=== PATIENT | female | born 2000 | race Caucasian/White ===

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

== ENCOUNTER → 2018-05-09 | Outpatient (REF) | payer OTHER ==
[2018-05-09 22:08] LABS: APPEARANCE, URINE CLEAR (CLEAR); BACTERIA, URINE AUTO NEGATIVE (NEGATIVE); BILIRUBIN, URINE AUTO NEGATIVE (NEGATIVE); BLOOD, URINE BLOOD NEGATIVE (NEGATIVE); COLOR, URINE YELLOW (YELLOW); GLUCOSE, URINE (UA) AUTO NEGATIVE (NEGATIVE); KETONE, URINE AUTO NEGATIVE (NEGATIVE); LEUKOCYTE ESTERASE, URINE AUTO NEGATIVE (NEGATIVE); NITRITE, URINE AUTO NEGATIVE (NEGATIVE); PROTEIN, URINE AUTO NEGATIVE (NEGATIVE); RBC, URINE AUTO 0 /HPF (0-3); SPECIFIC GRAVITY URINE AUTO 1.015 (1.002-1.035); SQUAMOUS EPITHELIAL CELL UR AU 0 /HPF (0-6); UROBILINOGEN, URINE AUTO 0.2 mg/dL (0.0-2.0); WBC, URINE AUTO 0 /HPF (0-3)
== END ==
LOC: M LAB REF 09:22
PROVIDERS: ATTEND Physician Assistant
DX: N39.0 Urinary tract infection, site not specified (principal)

== ENCOUNTER → 2018-07-12 | Outpatient (CLI) | payer BC, OTHER ==
[2018-07-12 13:48] LABS: BASO % 0.3 % (0.0-1.0); EOS # 0.1 10^3/uL (0.0-0.50); EOS % 3.8 % (0.0-3.0); HEMATOCRIT 39.4 % (36.0-47.0); HEMOGLOBIN 12.9 g/dl (12.0-15.5); LYMPH # 1.6 10^3/uL (1.5-6.5); LYMPH % 49.4 % (24.0-44.0); MEAN CORPUSCULAR HEMOGLOBIN 27.8 pg (27.0-33.0); MEAN CORPUSCULAR HGB CONC 32.7 g/dl (32.0-36.5); MEAN CORPUSCULAR VOLUME 84.9 fl (80.0-96.0); MONO # 0.4 10^3/uL (0.0-0.8); MONO % 13.8 % (0.0-5.0); NEUTROPHILS % 32.7 % (36.0-66.0); PLATELET COUNT, AUTOMATED 162 10^3/uL (150-450); RED BLOOD COUNT 4.64 10^6/uL (4.00-5.40); WHITE BLOOD COUNT 3.2 10^3/uL (4.0-10.0)
[2018-07-12 13:55] LABS: ALBUMIN 3.6 GM/DL (3.2-5.2); ALT/SGPT 34 U/L (12-78); BILIRUBIN,TOTAL 0.2 MG/DL (0.2-1.0); BLOOD UREA NITROGEN 5 MG/DL (7-18); CALCIUM LEVEL 8.6 MG/DL (8.5-10.1); CARBON DIOXIDE LEVEL 26 MEQ/L (21-32); CHLORIDE LEVEL 107 MEQ/L (98-107); CREATININE FOR GFR 0.66 MG/DL (0.55-1.30); FERRITIN 43 NG/ML (8-252); GLUCOSE, FASTING 78 MG/DL (70-100); IRON (FE) 41 UG/DL (50-170); MAGNESIUM LEVEL 2.1 MG/DL (1.4-2.0); PERCENT SATURATION 14.7 % (13.2-45.0); PHOSPHORUS LEVEL 3.7 MG/DL (2.5-4.9); POTASSIUM SERUM 3.8 MEQ/L (3.5-5.1); SODIUM LEVEL 142 MEQ/L (136-145); TOTAL IRON BINDING CAPACITY 279 UG/DL (250-450); TOTAL PROTEIN 6.9 GM/DL (6.4-8.2)
[2018-07-12 13:59] LABS: VITAMIN B12 LEVEL 758 PG/ML (247-911)
[2018-07-12 14:15] LABS: HEMOGLOBIN A1c 5.1 %
[2018-07-16 09:35] LABS: HEMATOCRIT 39.4 % (36.0-47.0)
== END ==
LOC: M SMT 12:00
PROVIDERS: ATTEND Surgery
DX: K91.2 Postsurgical malabsorption, not elsewhere classified (principal); E55.9 Vitamin D deficiency, unspecified; Z98.84 Bariatric surgery status

== ENCOUNTER → 2019-02-13 | Outpatient (CLI) | payer OTHER ==
[2019-02-13 17:14] LABS: FREE T4 0.9 NG/DL (0.78-1.33); THYROID STIMULATING HORMONE 1.31 uIU/ML (0.463-3.98)
== END ==
LOC: M SMT 11:52
PROVIDERS: ATTEND Nurse Practitioner Women's Health
DX: L65.9 Nonscarring hair loss, unspecified (principal)

== ENCOUNTER → 2019-02-18 | Outpatient (CLI) | payer BC, OTHER ==
--- NOTE | 2019-02-18 20:25 | REP ---
HISTORY: Ankle pain laterally. COMPARISON: No priors. There is a tiny flake-like ossific density distal to the distal fibular tip. This likely represents an age undetermined tiny avulsion fracture. There is no plain radiographic evidence of soft tissue swelling, however. The examination is otherwise unremarkable. IMPRESSION: Age undetermined tiny distal fibular tip avulsion fracture is suspected. Electronically Signed by Micheal Franco DO 02/19/2019 02:10 P
== END ==
LOC: M WUC 18:19
PROVIDERS: ATTEND Physician Assistant
DX: M25.571 Pain in right ankle and joints of right foot (principal)

== ENCOUNTER → 2019-12-17 | Outpatient (REF) | payer BC, OTHER | LOC: M LAB REF 11:18 | PROVIDERS: ATTEND Dermatology | DX: D23.4 Other benign neoplasm of skin of scalp and neck (principal) ==